=== PATIENT | male | born 1960 | race Caucasian/White ===

== ENCOUNTER 2018-10-21 01:23 | Inpatient (IN) ==
[2018-10-21] MEDS ORDERED: Acetaminophen 325 MG Tablet PO PRN (09:50)
[2018-10-21] MEDS ORDERED: Bisacodyl 10 MG Supp RECTAL PRN (09:50)
--- NOTE | 2018-10-21 09:56 | P.HPIM ---
History of Present Illness Primary Care Physician: UNKNOWN Chief Complaint: rt foot weakness and loss of sensation History of Present Illness: 58 yo M with h/o glioblastoma with recent finding of secondary brain lesion, left hemiparesis(since 02/2017),HTN, HEP C, Rheumatoid athritis,kidney stones, COPD, bladder cancer s/p removal. Hx obtained from patient and chart notes from [facility]. Patient had gone to [facility] w c/o nausea and coffee ground emesis, with accompanying loss of appetite. Vomiting has since subsided. He also c/o new right leg weakness and loss of sensation since his last oncology visit a week ago.He is now unable to bear weight on his right leg.His Neuro oncologist recently started him on Gabapentin. At [facility], he was ordered for MRIs of brain and spine, however, the MRI had broken down hence he was referred here for the MRIs. Patient wants to be transferred to [facility] after MRI is resulted. He does not want to go back to [place]. His says he should go back to [place] if his MRI is negative since [place] is closer to her. Patient has been transferred here from [facility] for MRI brain, C/T/L spine w/wo contrast because MRI was down at [facility]. labs from [facility] reviewed. H/h 12.8/41,plt 318, wbc12, Cr 0.63 mg 1.9, inr 1 Inpatient Certification Inpatient Certification: I certify that the inpatient services were ordered in accordance with Medicare regulations governing the order. This includes certification that hospital inpatient services are reasonable and necessary and in the case of services not specified as inpatient-only under 42 CFR 419.22(n), that they are appropriately provided as inpatient services in accordance to with the 2-midnight benchmark under 43 CFR 412.3(e) Review of Systems Review of Systems: all other systems reviewed are negative [facility] Medical History Medical History COPD (chronic obstructive pulmonary disease) (Chronic) Glioblastoma (Chronic) Glioblastoma determined by biopsy of brain (Chronic) HTN (hypertension) (Chronic) Hepatitis C (Chronic) Kidney stones (Chronic) Left hemiparesis (Chronic) Rheumatoid arthritis (Chronic) Cataract (Resolved) Social History Social History Smoking Status: Former smoker Medications and Allergies Allergies Allergy/AdvReac Type Severity Reaction Status Date / Time cephalexin [From Keflex] Allergy Hives Verified 10/21/18 09:50 Home Medications Medication Instructions Recorded Confirmed Type acetaminophen [Acetaminophen Extra 500 mg PO Q4-6H PRN 10/21/18 10/21/18 History Strength] aclidinium bromide [Tudorza 1 inh INHALATION BID 10/21/18 10/21/18 History Pressair] albuterol sulfate 2 puff INHALATION Q4-6H PRN 10/21/18 10/21/18 History cyclobenzaprine 5 mg PO TID PRN 10/21/18 10/21/18 History escitalopram oxalate [Lexapro] 5 mg PO DAILY 10/21/18 10/21/18 History levothyroxine 125 mcg PO DAILY 10/21/18 10/21/18 History ondansetron 8 mg PO BID PRN 10/21/18 10/21/18 History oxycodone 10 mg PO Q4-6H PRN 10/21/18 10/21/18 History polyethylene glycol 3350 [Miralax] 1 pkg PO DAILY 10/21/18 10/21/18 History prednisone 10 mg PO BID 10/21/18 10/21/18 History sennosides-docusate sodium 1 tab PO BID PRN 10/21/18 10/21/18 History Active Medications: Active Medications Acetaminophen (Tylenol) 650 mg PO Q4H PRN PRN Reason: Temp > 100.4 Al Hydroxide/Mg Hydroxide (Milk Of Magnesia Liq) 30 ml PO Q12H PRN PRN Reason: Mild Constipation Bisacodyl (Dulcolax Supp) 10 mg RECTAL DAILY PRN PRN Reason: SEVERE CONSITIPATION Lactulose (Lactulose Liq) 30 ml PO DAILY PRN PRN Reason: SEVERE CONSITIPATION Ondansetron HCl (Zofran Inj) 4 mg IV.PUSH Q6H PRN PRN Reason: NAUSEA OR VOMITING Senna/Docusate Sodium (Joann-Colace) 1 tab PO BID MUNIR Sennosides (Senokot) 17.2 mg PO Q12H PRN PRN Reason: Moderate Constipation Physical Exam Narrative: GENERAL: middle aged man,fair general condition, not in distress. well nourished. HEENT:not pale,anicteric,lt facial weakness(chronic) CARDIOVASCULAR: Regular rate and rhythm without murmurs, gallops, or rubs. RESPIRATORY: Clear to auscultation. Breath sounds equal bilaterally. No wheezes , rales, or rhonchi. GASTROINTESTINAL: Abdomen soft, non-tender, nondistended. Normal active bowel sounds MUSCULOSKELETAL: Extremities without clubbing, cyanosis, or edema. NEURO: Alert & Oriented x4 to person, place, time, situation. Lt side hemiparesis(muscle strength 2/5),swan deformity on lt hand noted. RUE 5/5.RLE 3/ 5 strength in leg and foot muscles. Impaired sensation on rt leg,with no sensation to touch on distal leg. Dorsal rt foot with no sensation to touch. Caprini VTE Risk Assessment Caprini VTE Risk Assessment: Moderate/High Risk (score >= 2) Caprini Risk Assessment Model: Point Value = 1 Point Value = 2 Point Value = 3 Point Value = 5 Age 41-60 Minor surgery BMI > 25 kg/m2 Swollen legs Varicose veins or History of unexplained or recurrent spontaneous Oral contraceptives or hormone replacement Sepsis (< 1 month) Serious lung disease, including pneumonia (< 1 month) Abnormal pulmonary function Acute myocardial infarction Congestive heart failure (< 1 month) History of inflammatory bowel disease Medical patient at bed rest Age 61-74 Arthroscopic surgery Major open surgery (> 45 min) Laparoscopic surgery (> 45 min) Malignancy Confined to bed (> 72 hours) Immobilizing plaster cast Central venous access Age >= 75 History of VTE Family history of VTE Factor V Leiden Prothrombin [id number] Lupus anticoagulant Anticardiolipin antibodies Elevated serum homocysteine Heparin-induced thrombocytopenia Other congenital or acquired thrombophilia Stroke (< 1 month) Elective arthroplasty Hip, pelvis, or leg fracture Acute spinal cord injury (< 1 month) Prophylaxis Regimen: Total Risk Factor Score Risk Level Prophylaxis Regimen 0-1 Low Early ambulation 2 Moderate Order ONE of the following: *Sequential Compression Device (SCD) *Heparin 5000 units SQ BID 3-4 Higher Order ONE of the following medications: *Heparin 5000 units SQ TID *Enoxaparin/Lovenox 40 mg SQ daily (WT < 150 kg, CrCl > 30 mL/min) *Enoxaparin/Lovenox 30 mg SQ daily (WT < 150 kg, CrCl > 10-29 mL/min) *Enoxaparin/Lovenox 30 mg SQ BID (WT < 150 kg, CrCl > 30 mL/min) AND/OR *Sequential Compression Device (SCD) 5 or more Highest Order ONE of the following medications: *Heparin 5000 units SQ TID (Preferred with Epidurals) *Enoxaparin/Lovenox 40 mg SQ daily (WT < 150 kg, CrCl > 30 mL/min) *Enoxaparin/Lovenox 30 mg SQ daily (WT < 150 kg, CrCl > 10-29 mL/min) *Enoxaparin/Lovenox 30 mg SQ BID (WT < 150 kg, CrCl > 30 mL/min) AND *Sequential Compression Device (SCD) Assessment and Plan Plan 58 yo M with h/o glioblastoma with recent finding of secondary brain lesion, left hemiparesis(since 02/2017),HTN, HEP C,Rheumatoid athritis,kidney stones, COPD, bladder cancer s/p removal. Patient referred for MRI after presenting with weakness and loss of sensation to rt leg/foot and inability to bear weight. MRI findings conclusions noted below: Brain:1. Focal area of diffuse heterogeneous enhancement involving the right basal ganglia with extension to the ependymal surface concerning for malignancy. This area centrally necrotic. There is evidence of a small amount of hemorrhage within this.2. Second area of abnormal contrast enhancement involving the ependyma, base of the caudate nucleus and extension posteriorly into the anterior aspect of the basal ganglia on the left. This is concerning for a second area of malignancy. Cervical spine:1. No significant neural foraminal stenosis or spinal stenosis identified.2. Small broad-based disc bulge and degenerative changes at C6-7.3. Degenerative changes in the facet joints as above.4. No enhancing mass identified Thoracic spine: Small left paracentral disc protrusions at T6-7 and T8-9.2. No evidence of significant canal compromise Lumbar spine: Mild lumbosacral spondylolisthesis with slight disc bulge and mild bilateral foraminal narrowing. I discussed MRI findings with patient and his , they do not want a neurology consult at this time.They want to be transferred back to [place]. I spoke with patient's neuro oncologist Dr. Salvador Lopez at [facility] who is fine with patient being transferred back to [place]. She will arrange for follow up with patient.
--- NOTE | 2018-10-21 11:50 | MR ---
EXAM DATE: 10/21/2018 11:44 AM EST AGE/SEX: 58 years / Male INDICATIONS: . Cord compression. CLINICAL DATA: This is the patient's subsequent encounter. Patient reports that signs and symptoms h ave been present for 4 - 6 months and indicates a pain score of 3/10. MEDICAL/SURGICAL HISTORY: Carcinoma, bladder. Glioblastoma. Craniotomy. Fusion, thoracic. COMPARISON: [facility] [place], MR CERVICAL SPINE W & W/O CON, 10/21/2018. . TECHNIQUE: Multiplanar, multisequence MRI examination of the lumbar spine was performed without and with 6 ml Gadavist (gadobutrol) contrast as a single exam dose. FINDINGS: The most caudal-appearing lumbar vertebra is numbered as L5. Vertebra: Minimal anterolisthesis of L5 relative to S1. Marrow signal is homogeneous and benign thro ughout Conus: Normal level and configuration. Post Contrast: No abnormal areas of contrast enhancement are seen. T12-L1: The thecal sac has a normal diameter. No evidence of disc bulge or protrusion. The neural foramina are patent bilaterally. L1-L2: The thecal sac has a normal diameter. No evidence of disc bulge or protrusion. The neural foramina are patent bilaterally. L2-L3: The thecal sac has a normal diameter. No evidence of disc bulge or protrusion. The neural foramina are patent bilaterally. L3-L4: The thecal sac has a normal diameter. No evidence of disc bulge or protrusion. The neural foramina are patent bilaterally. L4-L5: The thecal sac has a normal diameter. No evidence of disc bulge or protrusion. The neural foramina are patent bilaterally. L5-S1: Minimal broad dorsal disc protrusion. Mild bilateral foraminal narrowing without evidence of canal compromise. CONCLUSION: Mild lumbosacral spondylolisthesis with slight disc bulge and mild bilateral foraminal narrowing. Electronically signed by: Brock Hutson MD 10/21/2018 11:49 AM EST
--- NOTE | 2018-10-21 12:03 | MR ---
EXAM DATE: 10/21/2018 11:56 AM EST AGE/SEX: 58 years / Male INDICATIONS: . Cord compression. CLINICAL DATA: This is the patient's initial encounter. Patient reports that signs and symptoms have been present for 4 - 6 months and indicates a pain score of 4/10. MEDICAL/SURGICAL HISTORY: Carcinoma, bladder. Glioblastoma. Craniotomy. Bladder ca removed. COMPARISON: [facility] [place], MR THORACIC SPINE W & W/O CON, 10/21/2018. . TECHNIQUE: Multiplanar, multisequence MRI examination of the cervical spine was performed without an d with 6 ml Gadavist (gadobutrol) contrast as a single exam dose. FINDINGS: Sagittal T1 and T2-weighted imaging demonstrates adequate alignment of the cervical vertebral bodies. No significant abnormal marrow signal is seen. No abnormal signal is identified within the cervical cord. The cerebellar tonsils are in their appropriate location. Postcontrast T1-weighted imaging is provided. No abnormal contrast enhancement is identified. Axial imaging: C2-C3: The thecal sac has a normal configuration. There is no evidence of disc herniation or spinal canal stenosis. The neural foramina are patent bilaterally. C3-C4: There is mild degenerative change in the facet joints bilaterally. The thecal space and rupali jc are adequate. C4-C5: There is moderate facet arthritis on the left. There is mild facet arthritis on the right. Th e thecal space and foramina are adequate. C5-C6: There is mild facet arthritis bilaterally. The thecal space and foramina are adequate. C6-C7: There is a broad-based disc bulge which effaces the ventral thecal sac. The residual thecal s pace and foramina appear adequate. There is mild facet arthritis bilaterally. C7-T1: No epidural impressions seen. CONCLUSION: 1. No significant neural foraminal stenosis or spinal stenosis identified. 2. Small broad-based disc bulge and degenerative changes at C6-7. 3. Degenerative changes in the facet joints as above. 4. No enhancing mass identified. Electronically signed by: Dc Le MD 10/21/2018 12:01 PM EST
--- NOTE | 2018-10-21 12:15 | MR ---
EXAM DATE: 10/21/2018 12:02 PM EST AGE/SEX: 58 years / Male INDICATIONS: Mass. CLINICAL DATA: This is the patient's subsequent encounter. Patient reports that signs and symptoms h ave been present for 3 months and indicates a pain score of 4/10. MEDICAL/SURGICAL HISTORY: Carcinoma, bladder. Glioblastoma. Craniotomy. Bladder ca removed. COMPARISON: No prior exams available for comparison. TECHNIQUE: Multiplanar, multisequence examination of the brain was performed without and with 6 ml Ga davist (gadobutrol) contrast as a single exam dose. FINDINGS: The examination demonstrates a 3.1 x 2.4 x 2.6 cm heterogeneously enhancing, centrally necrotic mass involving the basal ganglia on the right. There is extension of heterogeneous contrast enhancement aw ay from the central aspect of the mass anteriorly and some subtle enhancement involving the ependymal lining of the lateral ventricular system. These findings are highly suspicious for malignancy and minaya ggestive of a glioblastoma. Of concern, the exam demonstrates a second area of abnormal contrast enha ncement involving the ependyma with subtle extension into the base of the caudate and basal ganglia o n the left side as well. This is concerning for a second focus of malignancy. The T1 and T2-weighted images do demonstrate some subtle signal within both areas suggesting there is some degree of subacute hemorrhage present as well. The T2-weighted images do not demonstrate significant vasogenic edema associated with the lesions. The ventricles are normal in size and configuration. No abnormal extra-axial fluid collections are se en. The appearance of the posterior fossa is unremarkable. The visualized portion of sinus and orbit are intact. CONCLUSION: 1. Focal area of diffuse heterogeneous enhancement involving the right basal ganglia with extension to the ependymal surface concerning for malignancy. This area centrally necrotic. There is evidence o f a small amount of hemorrhage within this. 2. Second area of abnormal contrast enhancement involving the ependyma, base of the caudate nucleus and extension posteriorly into the anterior aspect of the basal ganglia on the left. This is concerni ng for a second area of malignancy. Electronically signed by: Dc Le MD 10/21/2018 12:13 PM EST
[2018-10-21 12:37] VITALS: RESP 18
--- NOTE | 2018-10-21 12:52 | MR ---
EXAM DATE: 10/21/2018 12:47 PM EST AGE/SEX: 58 years / Male INDICATIONS: . Cord compression. CLINICAL DATA: This is the patient's subsequent encounter. Patient reports that signs and symptoms h ave been present for 4 - 6 months and indicates a pain score of 3/10. MEDICAL/SURGICAL HISTORY: Carcinoma, bladder. Glioblastoma. Craniotomy. Bladder ca removed. COMPARISON: [facility] [place], [place] CERVICAL SPINE W & W/O CON, 10/21/2018. . TECHNIQUE: Multiplanar, multisequence MRI of the thoracic spine was performed without and with 6 ml Gadavist (gadobutrol) contrast as a single exam dose. FINDINGS: Vertebrae: Normal vertebral body height. Homogeneous marrow signal. Alignment: Normal. Cord: Normal position and configuration. Post Contrast: No abnormal areas of enhancement are seen in the cord, dural or paraspinal regions. T1-T2: The thecal sac has a normal diameter. No evidence of disc bulge or protrusion. T2-T3: The thecal sac has a normal diameter. No evidence of disc bulge or protrusion. T3-T4: The thecal sac has a normal diameter. No evidence of disc bulge or protrusion. T4-T5: The thecal sac has a normal diameter. No evidence of disc bulge or protrusion. T5-T6: The thecal sac has a normal diameter. No evidence of disc bulge or protrusion. T6-T7: Small left paracentral disc protrusion mildly indenting thecal sac in the lateral recess. Can al is adequate. T7-T8: The thecal sac has a normal diameter. No evidence of disc bulge or protrusion. T8-T9: Minimal broad left paracentral disc protrusion slightly indenting thecal sac in the lateral r ecess. T9-T10: The thecal sac has a normal diameter. No evidence of disc bulge or protrusion. T10-T11: The thecal sac has a normal diameter. No evidence of disc bulge or protrusion. T11-T12: The thecal sac has a normal diameter. No evidence of disc bulge or protrusion. T12-L1: The thecal sac has a normal diameter. No evidence of disc bulge or protrusion. CONCLUSION: 1. Small left paracentral disc protrusions at T6-7 and T8-9. 2. No evidence of significant canal compromise. Electronically signed by: Brock Hutson MD 10/21/2018 12:51 PM EST
[2018-10-21] MEDS ORDERED: Gadobutrol PF 2 MMOL/2 ML Vial (for RAD) IV.SIG ONE (12:58)
--- NOTE | 2018-10-21 14:38 | P.DS ---
DS: Providers Date of admission: 10/21/18 09:07 Primary care physician: UNKNOWN Brief History from admission: 58 yo M with h/o glioblastoma with recent finding of secondary brain lesion, left hemiparesis(since 02/2017),HTN, HEP C, Rheumatoid athritis,kidney stones, COPD, bladder cancer s/p removal. Hx obtained from patient and chart notes from [facility]. Patient had gone to [facility] w c/o nausea and coffee ground emesis, with accompanying loss of appetite. Vomiting has since subsided. He also c/o new right leg weakness and loss of sensation since his last oncology visit a week ago.He is now unable to bear weight on his right leg.His Neuro oncologist recently started him on Gabapentin. At [facility], he was ordered for MRIs of brain and spine, however, the MRI had broken down hence he was referred here for the MRIs. Patient wants to be transferred to [facility] after MRI is resulted. He does not want to go back to [place]. His says he should go back to [place] if his MRI is negative since [place] is closer to her. Patient has been transferred here from [facility] for MRI brain, C/T/L spine w/wo contrast because MRI was down at [facility]. labs from [facility]. H/h 12.8/41,plt 318, wbc12, Cr 0.63 mg 1.9, inr 1 DS: Summary 58 yo M with h/o glioblastoma with recent finding of secondary brain lesion, left hemiparesis(since 02/2017),HTN, HEP C,Rheumatoid athritis,kidney stones, COPD, bladder cancer s/p removal. Hx obtained from patient and chart notes from [facility]. Patient had gone to [facility] w c/o nausea and coffee ground emesis, with accompanying loss of appetite. Vomiting has since subsided. He also c/o new right leg weakness and loss of sensation since his last oncology visit a week ago.He is now unable to bear weight on his right leg.His Neuro oncologist recently started him on Gabapentin. At [facility], he was ordered for MRIs of brain and spine, however, the MRI had broken down hence he was referred here for the MRIs. Patient wants to be transferred back to [place] for his GI issues to be taken care off once MRIs done here are resulted. Patient has been transferred here from [facility] for MRI brain, C/T/L spine w/wo contrast because MRI was down at [facility]. labs from [place] med reviewed. H/h 12.8/41,plt 318, wbc12, Cr 0.63 mg 1.9, inr 1 On presentation to [facility] med surg floor,patient had stable vitals. MRIs of the head and spine were done, did not show any acute findings. I discussed findings with patient's neuro oncologist Dr. Steen at [facility], who opined that the new weakness is most likely related to the secondary tumor noted in the recent MRI and again noted in MRI done here today. Patient is to be transferred back to [facility]. Time Spent with Patient Total time spent providing and/or coordinating discharge services: Exam Narrative Exam Narrative: GENERAL: middle aged man,fair general condition, not in distress. well nourished. HEENT:not pale,anicteric,lt facial weakness(chronic) CARDIOVASCULAR: Regular rate and rhythm without murmurs, gallops, or rubs. RESPIRATORY: Clear to auscultation. Breath sounds equal bilaterally. No wheezes , rales, or rhonchi. GASTROINTESTINAL: Abdomen soft, non-tender, nondistended. Normal active bowel sounds MUSCULOSKELETAL: Extremities without clubbing, cyanosis, or edema. NEURO: Alert & Oriented x4 to person, place, time, situation. Lt side hemiparesis(muscle strength 2/5),swan deformity on lt hand noted. RUE 5/5.RLE 3/ 5 strength in leg and foot muscles. Impaired sensation on rt leg,with no sensation to touch on distal leg. Dorsal rt foot with no sensation to touch. Results Impressions ITS Impressions Cervical Spine MRI 10/21/18 00:00 CONCLUSION: 1. No significant neural foraminal stenosis or spinal stenosis identified. 2. Small broad-based disc bulge and degenerative changes at C6-7. 3. Degenerative changes in the facet joints as above. 4. No enhancing mass identified. Head MRI 10/21/18 00:00 CONCLUSION: 1. Focal area of diffuse heterogeneous enhancement involving the right basal ganglia with extension to the ependymal surface concerning for malignancy. This area centrally necrotic. There is evidence of a small amount of hemorrhage within this. 2. Second area of abnormal contrast enhancement involving the ependyma, base of the caudate nucleus and extension posteriorly into the anterior aspect of the basal ganglia on the left. This is concerning for a second area of malignancy. Lumbar Spine MRI 10/21/18 00:00 CONCLUSION: Mild lumbosacral spondylolisthesis with slight disc bulge and mild bilateral foraminal narrowing. Thoracic Spine MRI 10/21/18 00:00 CONCLUSION: 1. Small left paracentral disc protrusions at T6-7 and T8-9. 2. No evidence of significant canal compromise. Discharge Plan Discharge Disposition Patient Disposition: Disch To Another Hospital Discharge Condition Condition: Stable Discharge Order Discharge Orders: Discharge Order (Routine); Ordered 10/21/18 Ordered By: Anastasiia Rivas Discharge Details Anticipated Discharge Date: 10/21/18 Physicians Team Primary Care Provider: UNKNOWN, Attending Provider: Anastasiia Rivas Rxs /Orders / Referrals /Forms Prescriptions: Continue prednisone 10 mg Tablet 10 mg PO BID RF: 0 sennosides-docusate sodium 8.6-50 mg Tablet 1 tab PO BID PRN (Reason: Constipation) RF: 0 acetaminophen [Acetaminophen Extra Strength] 500 mg Tablet 500 mg PO Q4-6H PRN (Reason: Pain) RF: 0 ondansetron 8 mg Tablet,Disintegrating 8 mg PO BID PRN (Reason: Nausea) RF: 0 levothyroxine 125 mcg Capsule 125 mcg PO DAILY RF: 0 polyethylene glycol 3350 [Miralax] 17 gram Powder In Packet 1 pkg PO DAILY RF: 0 albuterol sulfate 90 mcg/actuation Hfa Aerosol Inhaler 2 puff INHALATION Q4-6H PRN (Reason: Constipation) RF: 0 cyclobenzaprine 5 mg Tablet 5 mg PO TID PRN (Reason: Pain) RF: 0 escitalopram oxalate [Lexapro] 5 mg Tablet 5 mg PO DAILY RF: 0 oxycodone 10 mg Tablet 10 mg PO Q4-6H PRN (Reason: Pain) RF: 0 aclidinium bromide [Tudorza Pressair] 400 mcg/actuation Aerosol Powdr Breath Activated 1 inh INHALATION BID RF: 0 Referrals: UNKNOWN, [Primary Care Provider] - See Instructions
[2018-10-21 16:22] VITALS: BP 125/92; TEMP 97.8; O2SAT 94
[2018-10-21 18:03] VITALS: PULSE 88
[2018-10-21] MEDS ORDERED: Senna/Docusate Sodium 8.6/50 MG Tablet PO SCH (21:00)
[2018-10-21] MEDS ORDERED: predniSONE 10 MG Tablet PO SCH (21:00)
[2018-10-21] MEDS ORDERED: ACLIDINIUM BROMIDE INH SCH (21:00)
[2018-10-22] MEDS ORDERED: Levothyroxine 125 MCG Tablet PO SCH (06:00)
[2018-10-22] MEDS ORDERED: Polyethylene Glycol 3350 17 GM Packet PO SCH (09:00)
[2018-10-22] MEDS ORDERED: Escitalopram 10 MG Tablet PO SCH (09:00)
== END 2018-10-21 18:02 | disposition short-term general hospital (02) ==
LOC: HCIS 09:07
PROVIDERS: ADMIT Hospitalist; ATTEND Hospitalist